=== PATIENT | male | born 1965 | race Caucasian/White ===

== ENCOUNTER → 2017-07-12 | Outpatient (CLI) | payer OTHER ==
[~2017-07-12] MED LIST: REGADENOSON 0.4 MG/5 ML SYR ONE
--- NOTE | 2017-07-12 22:17 | MYOCARDIAL PERFUSION SCAN ---
NUCLEAR STRESS TEST STUDY REQUESTED BY: Wilver Burrows. STUDY TITLE: ONE-DAY NUCLEAR MEDICINE TECHNETIUM-99M CARDIOLITE MYOCARDIAL PERFUSION SCAN. INDICATION: Exertional dyspnea, chest discomfort in the setting of significant COPD. BASELINE ECHOCARDIOGRAM: Normal sinus rhythm at a ventricular rate of 90. There is an incomplete right bundle branch block with right axis deviation. No significant ST abnormalities. STRESS ECHOCARDIOGRAM: With Lexiscan, heart rate serafin from 90-115, blood pressure went from 111/81 down to 97/55. There was minimal Lexiscan induced chest pain. Stress EKG revealed occasional PACs, but no dynamic ST changes. Stress test nondiagnostic for ischemia. TECHNIQUE: For the stress portion of the study, 32.0 mCi of technetium-99m Cardiolite IV was injected at 11:35 a.m. on 07/12/2017. Thirty minutes following injection, imaging of the heart was performed in multiple projections. For the rest portion of the study, 10.3 mCi of technetium-99m Cardiolite was injected IV at 9:40 a.m. One hour following the injection, imaging of the heart was performed in the same projections. FINDINGS: 1. There was rotating raw images were reviewed in detail. There was mild gut/liver uptake impacting the inferior imaging border of the heart. There was some vertical motion noted more so on the rest images than stress. There was notable diaphragmatic attenuation. 2. Subtle primarily fixed anterior apical perfusion defect, most consistent with artifact in the setting of a vertical motion. Also, a subtle base to mid inferior, inferolateral perfusion defect, most consistent with diaphragmatic attenuation/liver uptake impacting the inferior imaging border of the heart. There were no other significant perfusion defects. 3. LV size was normal with an end-diastolic volume of 65 mL. LV function was normal with an ejection fraction of 51% and no regional wall motion abnormalities. IMPRESSION: 1. Negative myocardial perfusion study for Lexiscan-induced ischemia. 2. Normal left ventricular size and function. Calculated ejection fraction of 51%. 3. Nondiagnostic Lexiscan echocardiogram due to inability to reach target heart rate.
== END ==
LOC: C.NUCL 09:04
PROVIDERS: ATTEND Family Medicine
DX: R07.9 Chest pain, unspecified (principal); J44.9 Chronic obstructive pulmonary disease, unspecified